=== PATIENT | male | born 1950 | race Caucasian/White ===

== ENCOUNTER 2017-06-15 07:05 | Day surgery (SDC) | payer MEDICARE, OTHER ==
[~2017-06-15] VITALS: Ht 182.9 cm; Wt 90.7 kg
--- NOTE | 2017-06-15 06:05 | HISTORY AND PHYSICAL ---
DATE OF SERVICE: SCREENING COLONOSCOPY SUMMARY HISTORY OF PRESENT ILLNESS: The patient is a 67-year-old white male who has not been in the office for several years here for wellness evaluation, just having started Medicare. He reports that all in all he has been feeling well and voiced no complaints except for some decreased hearing in the right ear. He has noted no bowel habit change. Denies bright red blood per rectum or melena. He is not aware of any family history for colon cancer. He has had one other screening colonoscopy done now almost 13 years ago, so we discussed the rationale for repeat screening colonoscopy, which has been set up for 06/15/2017. Office visit occurred on 05/16/2017. 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 PAST MEDICAL HISTORY: Significant for erosive esophagitis diagnosed on EGD in 2011 without evidence of Hawley's. He has been taking omeprazole since [id number], denying any problems with dysphagia. Appetite has been stable and he denies any heartburn symptoms. PHYSICAL EXAMINATION: GENERAL: Reveals a well appearing white male, in no acute distress. VITAL SIGNS: Weight was stable at 204 pounds compared to his last office visit nearly 3 years ago. Blood pressure 140/80. HEENT: Oral cavity reveals Mallampati class 2 pharyngeal configuration without evidence for erythema. NECK: Revealed no JVD, adenopathy or bruits. CHEST: Clear to auscultation. CARDIOVASCULAR: Regular rate and rhythm without murmur, S3 or S4. ABDOMEN: Soft, supple without mass, organomegaly or tenderness. No bruits are noted. SKIN: Evaluation revealed no suspicious nevi. A few small seborrheic keratoses are noted on his back. Right ear canal did reveal cerumen plug, we had to use ear lavage as well as tweezers to evacuate a large wax plug with return to normal hearing and no ear canal erythema and normal tympanic membrane evaluation post lavage. ASSESSMENT AND PLAN: 1. Unremarkable wellness examination say for right cerumen impaction status post removal as per above. 2. The patient was in need of screening colonoscopy as it has been 13 years. He is deemed to be of average risk. Prep instructions with split dose Colyte were given. We will be calling him for yearly wellness evaluation. He did have some blood tests in September 2016 that revealed mild LDL elevation at 132 and mildly low HDL at 34. He has been taking red yeast rice and has no other risk factors for coronary artery disease. We will repeat the studies in 1 year and recommended yearly influenza vaccination in the fall. Job ID: [id number] DocumentID: [id number] Dictated Date: 05/16/2017 16:09:09 Joist Setter Date: 05/16/2017 16:56:11 Dictated By: JOSEPH HUNT MD
[~2017-06-15 07:05] MED LIST: ASPI-586 PO; OMEP20TA7 PO
[2017-06-15] MEDS ORDERED: D5 LR IV SOLUTION 1,000 ML IV ONE (07:07)
[2017-06-15] MEDS ORDERED: D5 LR IV SOLUTION 1,000 ML IV STA (07:29)
[2017-06-15] MEDS ORDERED: MIDAZOLAM 2 MG/2 ML (VERSED) VIAL IVP PRN (07:30)
[2017-06-15] MEDS ORDERED: MIDAZOLAM 2 MG/2 ML (VERSED) VIAL IV PRN (07:30)
[2017-06-15] MEDS ORDERED: LIDOCAINE JELLY 2% (XYLOCAINE) 5 ML TUBE TOP PRN (07:30)
[2017-06-15] MEDS ORDERED: fentaNYL INJECTION 100 MCG/2 ML AMP IVP PRN (07:30)
[2017-06-15] MEDS ORDERED: D5 LR IV SOLUTION 1,000 ML IV SCH (07:30)
[2017-06-15] MEDS ORDERED: LIDOCAINE JELLY 2% (XYLOCAINE) 5 ML TUBE MM PRN (07:30)
[2017-06-15 07:32] VITALS: BP 125/84
[2017-06-15] MEDS ORDERED: LIDOCAINE JELLY 2% (XYLOCAINE) 5 ML TUBE ONE (07:42)
[2017-06-15] MEDS ORDERED: fentaNYL INJECTION 100 MCG/2 ML AMP ONE (07:42)
[2017-06-15] MEDS ORDERED: MIDAZOLAM 2 MG/2 ML (VERSED) VIAL ONE (07:42)
[2017-06-15] MEDS: fentaNYL INJECTION 100 MCG/2 ML AMP IV PRN ×2 (07:58→08:10)
[2017-06-15 08:50] VITALS: BP 144/85
--- NOTE | 2017-06-15 08:50 | Pre-Op Note & Conscious Sedat ---
Pre-Operative Progress Note H&P Reviewed The H&P was reviewed, patient examined and no changes noted. Date H&P Reviewed: Jun 15, 2017 Time H&P Reviewed: 07:40 Conscious Sedation Pre-Proced ASA Class: 2 Airway Mallampati Classification: (qagan t[place]agung[place] appropriate class) I. II. III, IV Lungs Heart ASA score ASA 1: a normal healthy patient ASA 2: a patient with a mild systemic disease (mid diabetes, controlled hypertension, obesity ASA 3: a patient with a severe systemic disease that limits activity (angina , COPD, prior Myocardial infarction) ASA 4: a patient with an incapacitating disease that is a constant threat to life (CHF, renal failure) ASA 5: a moribund patient not expected to survive 24 hrs. (ruptured aneurysm) ASA 6: a declared brain patient whose organs are being harvested. For emergent operations, add the letter E after the classification Grade 2 Sedation Plan: Analgesia, Amnesia, Plan communicated to team members, Discussed options with patient/fam, Discussed risks with patient/fam Note The patient is an appropriate candidate to undergo the planned procedure, sedation, and anesthesia. The patient immediately re-assessed prior to indication. JOSEPH HUNT MD Jun 15, 2017 08:50
[2017-06-15 09:15] VITALS: BP 134/83
[2017-06-15 09:51] VITALS: BP 134/83
--- NOTE | 2017-06-15 15:16 | OPERATIVE REPORT ---
DATE OF SERVICE: 06/15/2017 INDICATION FOR THE PROCEDURE: Screening colonoscopy. The patient was placed in the left lateral decubitus position. Prior to undergoing colonoscopy, digital rectal evaluation was performed. Prostate is mild to moderately enlarged flat anodular, nontender on digital inspection. No other abnormalities noted on digital inspection of anal canal or distal rectal vault. The colonoscope was then inserted into the rectum under direct visualization and advanced to the cecum. The cecum was identified by identification of the ileocecal valve and cecal strap. Photographic documentation was obtained. Careful inspection was made of the cecum while the colonoscope was withdrawn. The patient tolerated the procedure well. FINDINGS: There was no evidence for internal or external hemorrhoids and the rectum was unremarkable. Mild to moderate number of small to medium size sigmoid diverticulum were present without evidence for diverticulitis. Present in the distal sigmoid colon just proximal to the rectosigmoid junction was a 1 cm sessile polyp. It was snared, ligated with minimal blood loss and retrieved in its entirety. He had uniform mucosal features without evidence for ulceration. The descending colon, splenic flexure, transverse colon, hepatic flexure, ascending colon and cecum were unremarkable. ASSESSMENT: 1. A 1 cm adenomatous-appearing sessile polyp was snared, basketed and retrieved in its entirety as noted above. We will await on histopathology reports before making recommendations for future surveillance colonoscopy. 2. Mild to moderate diverticular disease confined to the sigmoid colon was present without evidence for diverticulitis. 3. Mild to moderate benign prostatic hypertrophy noted on digital rectal evaluation. Job ID: [id number] DocumentID: [id number] Dictated Date: 06/15/2017 09:37:51 Mattress Spring Encaser Date: 06/15/2017 15:16:12 Dictated By: JOSEPH HUNT MD
== END 2017-06-15 09:50 | disposition home or self-care (01) ==
LOC: ENDO 07:05
PROVIDERS: ATTEND Internal Medicine
DX: Z12.11 Encounter for screening for malignant neoplasm of colon (principal); D12.5 Benign neoplasm of sigmoid colon; K57.30 Diverticulosis of large intestine without perforation or abscess without bleeding; N40.0 Benign prostatic hyperplasia without lower urinary tract symptoms
CPT/HCPCS: 88305

== ENCOUNTER 2018-05-31 05:39 | Outpatient (CLI) | payer MEDICARE, OTHER ==
[~2018-05-31] VITALS: Ht 182.9 cm; Wt 96.2 kg
[2018-05-31] MEDS ORDERED: TRAZ-190 PO (13:35)
== END 2018-05-31 13:37 | disposition home or self-care (01) ==
LOC: PREOP 05:39
PROVIDERS: ATTEND Internal Medicine
DX: Z01.818 Encounter for other preprocedural examination (principal)

== ENCOUNTER 2018-06-07 07:41 | Day surgery (SDC) | payer MEDICARE, OTHER ==
--- NOTE | 2018-05-21 17:55 | HISTORY AND PHYSICAL ---
DATE OF SERVICE: COLONOSCOPY HISTORY AND PHYSICAL HISTORY OF PRESENT ILLNESS: The patient is a 68-year-old white male undergoing diagnostic colonoscopy due to past history of tubulovillous adenoma which was pedunculated little over a centimeter in size, removed from the distal sigmoid colon one year ago. Since that time, he has noted no bright red blood per rectum, melena and has had no abdominal pain or bowel habit change. Reports that he has been feeling well and voices no complaints. FAMILY HISTORY: He is not aware of any family history for colon cancer. PHYSICAL EXAMINATION: GENERAL: Reveals a well-appearing white male in no acute distress. VITAL SIGNS: Weight was stable at 212.8 pounds, blood pressure 130/80, and heart rate 72 and regular. HEENT: Unremarkable. Sclerae nonicteric. CHEST: Clear to auscultation. CARDIOVASCULAR: Reveals regular rate and rhythm without murmur, S3 or S4. ABDOMEN: Soft, supple without mass, organomegaly or tenderness. Rectal exam was deferred at the time of colonoscopy. EXTREMITIES: Reveal no cyanosis, clubbing or edema. ASSESSMENT AND PLAN: The patient was set up for surveillance colonoscopy due to past history of pedunculated villous adenomas removed from the distal sigmoid colon one year ago. Prep instructions were given and questions were answered. Job ID: [id number] DocumentID: [id number] Dictated Date: 05/16/2018 15:58:55 Stitching Machine Operator Date: 05/16/2018 16:17:07 Dictated By: JOSEPH HUNT MD
[~2018-06-07] VITALS: Ht 182.9 cm; Wt 96.2 kg
[~2018-06-07 07:41] MED LIST changes: +TRAZ-190 PO
[2018-06-07 07:45] VITALS: BP 145/91
[2018-06-07] MEDS ORDERED: D5 LR IV SOLUTION 1,000 ML IV ONE (07:47)
[2018-06-07] MEDS ORDERED: D5 LR IV SOLUTION 1,000 ML IV STA (08:00)
[2018-06-07] MEDS ORDERED: LIDOCAINE JELLY 2% 6 ML SYRINGE MM PRN (08:00)
[2018-06-07] MEDS ORDERED: MIDAZOLAM 2 MG/2 ML (VERSED) VIAL IVP ONE (08:00)
[2018-06-07] MEDS ORDERED: fentaNYL INJECTION 100 MCG/2 ML AMP IVP ONE (08:00)
[2018-06-07] MEDS ORDERED: MIDAZOLAM 2 MG/2 ML (VERSED) VIAL ONE ×2 (08:14)
[2018-06-07] MEDS ORDERED: fentaNYL INJECTION 100 MCG/2 ML AMP ONE ×2 (08:14)
[2018-06-07] MEDS ORDERED: LIDOCAINE JELLY 2% 6 ML SYRINGE ONE (08:15)
--- NOTE | 2018-06-07 09:03 | Pre-Op Note & Conscious Sedat ---
Pre-Operative Progress Note H&P Reviewed The H&P was reviewed, patient examined and no changes noted. Date H&P Reviewed: Jun 07, 2018 Time H&P Reviewed: 07:45 Conscious Sedation Pre-Proced ASA Score 1 For ASA 3 and 4: Consider anesthesia and medical clearance. Also, for patients with a history of failed moderate sedation consider anesthesia. Airway Lungs Heart ASA score ASA 1: a normal healthy patient ASA 2: a patient with a mild systemic disease (mid diabetes, controlled hypertension, obesity ASA 3: a patient with a severe systemic disease that limits activity (angina , COPD, prior Myocardial infarction) ASA 4: a patient with an incapacitating disease that is a constant threat to life (CHF, renal failure) ASA 5: a moribund patient not expected to survive 24 hrs. (ruptured aneurysm) ASA 6: a declared brain- patient whose organs are being harvested. For emergent operations, add the letter E after the classification Mallampati Classification Grade 2 Sedation Plan Analgesia, Amnesia, Plan communicated to team members, Discussed options with patient/fam, Discussed risks with patient/fam The patient is an appropriate candidate to undergo the planned procedure, sedation, and anesthesia. The patient immediately re-assessed prior to indication. JOSEPH HUNT MD Jun 07, 2018 09:03
[2018-06-07 09:10] VITALS: BP 141/77
[2018-06-07 09:35] VITALS: BP 145/81
[2018-06-07 09:45] VITALS: BP 145/81
--- NOTE | 2018-06-07 23:33 | OPERATIVE REPORT ---
DATE OF SERVICE: COLONOSCOPY SUMMARY INDICATION FOR PROCEDURE: Surveillance colonoscopy due to past history of colonic adenomas. The patient was placed in left lateral decubitus position. Prior to undergoing colonoscopy, digital rectal evaluation was performed. Anal sphincter tone was normal. The perianal reflexes intact. Prostate is unremarkable to digital inspection without significant hypertrophy. The colonoscope was then inserted into the rectum under direct visualization advanced to the cecum. The cecum was identified by identification of the ileocecal valve and cecal strap. Photographic documentation was obtained. Quality of prep was good. The patient tolerated the procedure well. FINDINGS: There is no evidence for internal or external hemorrhoids and the rectum was unremarkable. Moderate small to medium size sigmoid diverticulum with haustral hypertrophy were present throughout the sigmoid and descending colon. Present in the distal sigmoid colon was a diminutive 2 mm sessile polyp was biopsied and ablated and submitted for histopathology. The previous pedunculated villous adenoma removed from the distal sigmoid colon was not apparent that revealed no evidence for recurrence on today's procedure. The transverse colon, ascending colon and cecum were unremarkable. ASSESSMENT: 1. Moderate diverticular disease noted in the sigmoid and descending colon was present without evidence for diverticulitis. 2. One diminutive distal sigmoid sessile polyp was removed via hot forceps with no blood loss. No other evidence for neoplasia was identified. As long as there is no surprise on histopathology report, would likely be abdicating repeat surveillance colonoscopy in 5 years. Job ID: [id number] DocumentID: [id number] Dictated Date: 06/07/2018 12:00:16 Reverse Unit Operator Fisherman Date: 06/07/2018 23:32:55 Dictated By: JOSEPH HUNT MD
== END 2018-06-07 09:47 | disposition home or self-care (01) ==
LOC: ENDO 07:41
PROVIDERS: ATTEND Internal Medicine
DX: Z09 Encounter for follow-up examination after completed treatment for conditions other than malignant neoplasm (principal); D12.5 Benign neoplasm of sigmoid colon; K57.30 Diverticulosis of large intestine without perforation or abscess without bleeding
CPT/HCPCS: 88305